=== PATIENT | male | born 1975 | race Caucasian/White ===

== ENCOUNTER 2022-05-31 22:37 | Inpatient (IN) ==
[2022-05-31] MEDS ORDERED: methylPREDNISolone SOD SUCC 125 MG/2 ML VIAL IV ONE (23:05)
[2022-05-31] MEDS ORDERED: IPRATROPIUM/ALBUTEROL 3 ML AMPUL.NEB NEB ONE (23:05)
[2022-05-31] MEDS ORDERED: LACTATED RINGERS 1,000 ML IV ONE (23:05)
[2022-05-31] MEDS ORDERED: BUDESONIDE 0.5 MG/2 ML AMPUL.NEB NEB ONE (23:09)
[2022-06-01] LABS: Basophils # (Auto) 0.06 K/mcL (0.00-0.30); Basophils % (Auto) 0.3 % (0.0-2.0); Eosinophils % (Auto) 1.7 % (0.0-7.0); Hematocrit 51.3 % (40.1-51.0); Hemoglobin 16.8 g/dL (13.7-17.5); Lymphocytes # (Auto) 2.35 K/mcL (1.50-4.80); Lymphocytes % (Auto) 13.7 % (15.5-49.0); Mean Cell Volume 92.3 fL (80.0-100.0); Mean Corpuscular HGB Conc 32.7 g/dL (31.0-36.0); Mean Platelet Volume 10.6 fL (8.8-12.5); Monocytes # (Auto) 1.25 K/mcL (0.10-0.90); Monocytes % (Auto) 7.3 % (1.0-12.0); Neutrophils % (Auto) 76.7 % (38.0-78.0); Platelet Count 315 K/mcL (140-440); RBC 5.56 M/mcL (4.63-6.08); Red Cell Distribution Width 12.5 % (11.5-14.5); WBC 17.2 K/mcL (4.5-11.0)
[2022-06-01] MEDS ORDERED: PIPERACILLIN SODIUM/TAZOBACTAM 3.375 GM in DEXTROSE 5% IN WATER 50 ML IV ONE (00:07)
[2022-06-01 00:14] LABS: ALT/SGPT 34 U/L (<40); AST/SGOT 19 U/L (<40); Albumin 3.6 gm/dL (3.2-5.2); Alkaline Phosphatase 183 U/L (39-117); Bilirubin,Total 0.6 mg/dL (0.1-1.0); Blood Urea Nitrogen 10 mg/dL (6-20); Carbon Dioxide 27 mmol/L (22-30); Chloride 95 mmol/L (96-108); Globulin 3.7 gm/dL (2.2-3.7); Glomerular Filtration Rate 143; Glucose 97 mg/dL (70-105)
--- NOTE | 2022-06-01 00:18 | Emergency Department Note ---
HPI General Chief complaint: Shortness of Breath/Dyspnea Stated complaint: SOB Time Seen by Provider: 05/31/22 22:37 Source: family Mode of arrival: wheelchair Limitations: altered mental status and physical limitation History of Present Illness HPI Narrative: Narrative: This is a 46-year-old male with a history of cerebral palsy, asthma presents to the emergency department with shortness of breath and increased work of breathing. Patient is trach dependent, he is on 2 L of oxygen via trach collar at baseline. Patient is nonverbal and history is obtained from parents. Patient was in the emergency department yesterday and diagnosed with a pneumonia the family states that he was given IV fluids and antibiotics and did well throughout the rest of the day however tonight he had an episode when they were laying him back he became very short of breath with signs of increased work of breathing, he had skin discoloration and almost turned blue. Parents state that this episode has gone and his symptoms have been proved but he is still breathing faster than he normally does. Patient has had low-grade fevers around 100. Related Data Home Medications Medication Instructions Recorded Confirmed doxycycline hyclate 100 mg tablet 100 mg PO QDAY 11/30/20 06/01/22 polyethylene glycol 3350 17 See Rx Instructions PO QDAY 11/30/20 06/01/22 gram/dose oral powder (Miralax) metronidazole 0.75 % topical gel 1 applic topical QDAY 12/05/21 06/01/22 sennosides 8.6 mg capsule (senna) 8.6 mg PO .COMPLEX 12/05/21 06/01/22 Previous Rx's Medication Instructions Recorded Curaplex Nebulizer #1 ea 02/15/16 Compact Compressor Combo Pack with #2 ea 08/28/16 Air Filters Dual Port Feeding Adaptor #1 ea 11/12/17 ketoconazole 2 % topical cream 1 applic topical BID 3 weeks #30 06/02/19 grams wheelchair #1 ea 06/02/19 Suction Catheter mini tray #400 ea 08/18/19 sodium chloride 0.9 % for 3 ml inhalation Q12H #300 mL 12/05/20 nebulization meclizine 12.5 mg tablet 12.5 mg PO TID PRN dizziness #30 09/13/21 tabs ipratropium 0.5 mg-albuterol 3 mg 3 ml inhalation QID #1,080 mL 11/06/21 (2.5 mg base)/3 mL nebulization soln albuterol sulfate 2.5 mg/3 mL 2.5 mg (3 mL) inhalation Q2H PRN 12/05/21 (0.083 %) solution for nebulization bronchospasm 30 days #1,080 mL Balloon PEG tube #1 ea 12/14/21 baclofen 20 mg tablet 20 mg PO .COMPLEX PRN muscle spasm 01/23/22 #360 tabs budesonide 0.5 mg/2 mL suspension 0.5 mg (2 mL) inhalation BID #360 02/22/22 for nebulization (Pulmicort) mL carbamazepine 100 mg chewable 100 mg PO QID #120 tabs 02/22/22 tablet hydrocodone 5 mg-acetaminophen 325 1 tab PO TID PRN pain #90 tabs 03/22/22 mg tablet omeprazole 20 mg capsule,delayed 20 mg PO QDAY #90 caps 04/04/22 release amlodipine 5 mg tablet (Norvasc) 5 mg PO QDAY #90 tabs 04/12/22 sertraline 50 mg tablet (Zoloft) 50 mg PO QDAY #90 tabs 04/12/22 lorazepam 1 mg tablet (Ativan) 1 mg PO TID PRN anxiety #90 tabs 04/16/22 Allergies Allergy/AdvReac Type Severity Reaction Status Date / Time theophylline Allergy Unknown Unknown Verified 06/01/22 14:41 metoclopramide [From Reglan] AdvReac Intermediate Agitated Verified 06/01/22 14:41 Review of Systems ROS ROS Narrative: Narrative: Unable to obtain secondary to underlying medical condition. [facility] Narrative Patient History Narrative: Narrative: Medical/Surgical/Family History All Active Problems (Updated 06/03/22 @ 08:53 by Georgi Thapa MD) Left lower lobe pneumonia (Acute) Pneumonia (Acute) Tachycardia (Acute) Stage 2 skin ulcer of sacral region (Acute) Anxiety (Acute) High risk medication use (Acute) Spasticity (Acute) BPPV (benign paroxysmal positional vertigo) (Acute) Annual physical exam (Acute) PEG tube malfunction (Acute) Medicare annual wellness visit, subsequent (Acute) Aspiration pneumonia (Acute) Nausea & vomiting (Acute) Encounter for care related to feeding tube (Acute) History of transurethral resection of prostate (Chronic) Status post emergency tracheotomy for assistance in breathing (Chronic) Hydrocephalus with operating shunt (Chronic) H/O spinal fusion (Chronic) Pulmonary insufficiency (Chronic) Neurogenic bladder (Chronic) Esophageal disorder (Chronic) Cerebral palsy (Chronic) Asthma (Chronic) AG (generalized anxiety disorder) (Chronic) Medical History Acute bronchiolitis 09/25/2014- Dr. Becerra Annual physical exam Anxiety Asthma 09/25/2014- Dr. Becerra BPPV (benign paroxysmal positional vertigo) Cerebral palsy Esophageal disorder Ulcerative Esophagitis/peg tube AG (generalized anxiety disorder) High risk medication use Medicare annual wellness visit, subsequent Neurogenic bladder PEG tube malfunction Pulmonary insufficiency NEC-With trach Seizures Spasticity Stage 2 skin ulcer of sacral region Surgical History Encounter for feeding tube placement 09/2014 H/O spinal fusion 05/1995-Modified 1996, Candie Cardona History of transurethral resection of prostate Hydrocephalus with operating shunt 3 months old, Status post emergency tracheotomy for assistance in breathing 04/1996 Family History Unknown Allergic rhinitis Asthma Cardiac disease Disorder of thyroid Father Hypertension Social History Smoking Status: Never smoker Alcohol Intake Frequency: does not drink Exam Narrative Narrative: Narrative: General: Nonverbal, in wheelchair, thin HEENT: NCAT Neck: Trach collar in place Cardiovascular: RRR. No murmur. Respiratory: Diminished breath sounds bilaterally predominantly in the bases Gastrointestinal: Soft. PEG tube in place Musculoskeletal: Diffuse muscular atrophy Skin: Warm. Dry. No rash Neurologic: Spasticity to the upper and lower extremities General Limitations: altered mental status and physical limitation Course Vital Signs Vital signs: Vital Signs Temperature 97.8 F 05/31/22 22:37 Pulse Rate 85 05/31/22 22:37 Respiratory Rate 30 H 05/31/22 22:37 Blood Pressure 148/115 05/31/22 22:37 Pulse Oximetry (%) 96 05/31/22 22:37 Oxygen Delivery Method 05/31/22 22:37 Temperature 99.9 F H 06/03/22 04:10 Pulse Rate 123 H 06/03/22 07:23 Respiratory Rate 30 H 06/03/22 07:23 Blood Pressure 118/91 06/03/22 06:00 Pulse Oximetry (%) 97 06/03/22 07:23 Oxygen Delivery Method 06/03/22 07:23 Oxygen Flow Rate (L/min) 14 06/02/22 09:11 MDM MDM Narrative Medical decision making narrative: Narrative: Patient presents to the emergency department with increased work of breathing patient does have a history of cerebral palsy he is nonverbal and wheelchair- bound. Patient also has a history of reactive airway disease. Initially patient did appear to be struggling to catch his breath he was maintaining appropriate oxygen saturation on his baseline 2 L however. Patient has been on antibiotics for 1 day outpatient for pneumonia. Patient's initial blood work shows a worsening leukocytosis, lactate of 2.8. Patient was given DuoNeb, 125 mg of Solu-Medrol for his underlying lung disease along with vancomycin and Zosyn. Shortly after patient did develop a profound tachycardia his rate was up to 160. Review of telemetry and EKGs it does appear to be a sinus rhythm. Because of this was unclear patient is nonverbal his work of breathing did not seem to be necessarily worsened. Other considerations include from the Solu- Medrol or DuoNeb however patient is on inhalers scheduled at home. Patient did not have a fever at the time of his heart rate spiked. Family was very con cerned that it was related to anxiety. Family is very much in tune with the patient and took very good care of him. I did have reservations for checking the patient's tachycardia up to anxiety. The patient is prescribed Ativan and I did give him a 1 mg dose. Patient also was overdue for his baclofen so this was given as well. Patient was also given IV fluids and Toradol. Multiple EKGs per my interpretation is still does appear that the patient is in a sinus tachycardia his rate improved to around the 120s. Given the tachycardia I did consider pulmonary embolism. There has been no obvi ous new lower extremity edema however the patient is wheelchair-bound there is no history of venous thromboembolism. Patient's D-dimer was mildly elevated. Family states that they are there is no possible way for the patient to lie still and flat for a CT scan. I will start the patient on heparin and order bilateral lower extremity duplex. Should these be negative would greatly decrease the likelihood of pulmonary embolism. Patient may also be able to go for CT scan under sedation inpatient? Lab Data Result diagrams: 06/03/22 05:01 06/03/22 05:01 Labs: Lab Results 05/31/22 05/31/22 05/31/22 Range/Units 23:20 23:20 23:20 WBC 17.2 H (4.5-11.0) K/mcL RBC 5.56 (4.63-6.08) M/mcL Hgb 16.8 (13.7-17.5) g/dL Hct 51.3 H (40.1-51.0) % MCV 92.3 (80.0-100.0) fL MCH 30.2 (26.0-34.0) pg MCHC 32.7 (31.0-36.0) g/dL RDW 12.5 (11.5-14.5) % Plt Count 315 (140-440) K/mcL MPV 10.6 (8.8-12.5) fL Immature Gran % (Auto) 0.3 (0.0-0.5) % Neut % (Auto) 76.7 (38.0-78.0) % Lymph % (Auto) 13.7 L (15.5-49.0) % [place] % (Auto) 7.3 (1.0-12.0) % Eos % (Auto) 1.7 (0.0-7.0) % Baso % (Auto) 0.3 (0.0-2.0) % Lymph # (Auto) 2.35 (1.50-4.80) K/mcL [place] # (Auto) 1.25 H (0.10-0.90) K/mcL Eos # (Auto) 0.30 (0.00-0.70) K/mcL Baso # (Auto) 0.06 (0.00-0.30) K/mcL Immature Gran # 0.06 H (0.00-0.05) K/mcl Absolute Neutrophils 13.13 H (1.80-8.00) K/mcL APTT (20.0-37.0) sec D-Dimer (0.27-0.50) ug/mL POC VBG pH (7.32-7.42) POC VBG pCO2 at Temp (41-51) POC VBG pO2 (25-40) POC VBG HCO3 (24-28) POC VBG Total CO2 (25-29) POC Venous O2 Sat (40-70) POC VBG Base Excess (-2-2) VBG Lactic Acid (0.5-2) Sodium 133 (133-145) mmol/L Potassium 4.0 (3.3-5.1) mmol/L Chloride 95 L (96-108) mmol/L Carbon Dioxide 27 (22-30) mmol/L Anion Gap 11.0 (8.0-16.0) BUN 10 (6-20) mg/dL Creatinine 0.4 L (0.7-1.2) mg/dL GFR Calculation 143 Glucose 97 (70-105) mg/dL Calcium 9.0 (8.6-10.4) mg/dL Total Bilirubin 0.6 (0.1-1.0) mg/dL AST 19 (<40) U/L ALT 34 (<40) U/L Alkaline Phosphatase 183 H (39-117) U/L Total Protein 7.3 (5.9-8.4) gm/dL Albumin 3.6 (3.2-5.2) gm/dL Globulin 3.7 (2.2-3.7) gm/dL Albumin/Globulin Ratio 1.0 (1.0-2.3) Procalcitonin 0.08 (<0.10) ng/mL TSH (0.27-5.01) uIU/mL 05/31/22 05/31/22 05/31/22 Range/Units 23:20 23:20 23:26 WBC (4.5-11.0) K/mcL RBC (4.63-6.08) M/mcL Hgb (13.7-17.5) g/dL Hct (40.1-51.0) % MCV (80.0-100.0) fL MCH (26.0-34.0) pg MCHC (31.0-36.0) g/dL RDW (11.5-14.5) % Plt Count (140-440) K/mcL MPV (8.8-12.5) fL Immature Gran % (Auto) (0.0-0.5) % Neut % (Auto) (38.0-78.0) % Lymph % (Auto) (15.5-49.0) % [place] % (Auto) (1.0-12.0) % Eos % (Auto) (0.0-7.0) % Baso % (Auto) (0.0-2.0) % Lymph # (Auto) (1.50-4.80) K/mcL [place] # (Auto) (0.10-0.90) K/mcL Eos # (Auto) (0.00-0.70) K/mcL Baso # (Auto) (0.00-0.30) K/mcL Immature Gran # (0.00-0.05) K/mcl Absolute Neutrophils (1.80-8.00) K/mcL APTT (20.0-37.0) sec D-Dimer 1.46 H (0.27-0.50) ug/mL POC VBG pH 7.38 (7.32-7.42) POC VBG pCO2 at Temp 46.8 (41-51) POC VBG pO2 29 (25-40) POC VBG HCO3 28.0 (24-28) POC VBG Total CO2 29.0 (25-29) POC Venous O2 Sat 54.0 (40-70) POC VBG Base Excess 3.0 H (-2-2) VBG Lactic Acid 2.8 H (0.5-2) Sodium (133-145) mmol/L Potassium (3.3-5.1) mmol/L Chloride (96-108) mmol/L Carbon Dioxide (22-30) mmol/L Anion Gap (8.0-16.0) BUN (6-20) mg/dL Creatinine (0.7-1.2) mg/dL GFR Calculation Glucose (70-105) mg/dL Calcium (8.6-10.4) mg/dL Total Bilirubin (0.1-1.0) mg/dL AST (<40) U/L ALT (<40) U/L Alkaline Phosphatase (39-117) U/L Total Protein (5.9-8.4) gm/dL Albumin (3.2-5.2) gm/dL Globulin (2.2-3.7) gm/dL Albumin/Globulin Ratio (1.0-2.3) Procalcitonin (<0.10) ng/mL TSH 2.11 (0.27-5.01) uIU/mL 06/01/22 06/01/22 Range/Units 02:47 08:40 WBC (4.5-11.0) K/mcL RBC (4.63-6.08) M/mcL Hgb (13.7-17.5) g/dL Hct (40.1-51.0) % MCV (80.0-100.0) fL MCH (26.0-34.0) pg MCHC (31.0-36.0) g/dL RDW (11.5-14.5) % Plt Count (140-440) K/mcL MPV (8.8-12.5) fL Immature Gran % (Auto) (0.0-0.5) % Neut % (Auto) (38.0-78.0) % Lymph % (Auto) (15.5-49.0) % [place] % (Auto) (1.0-12.0) % Eos % (Auto) (0.0-7.0) % Baso % (Auto) (0.0-2.0) % Lymph # (Auto) (1.50-4.80) K/mcL [place] # (Auto) (0.10-0.90) K/mcL Eos # (Auto) (0.00-0.70) K/mcL Baso # (Auto) (0.00-0.30) K/mcL Immature Gran # (0.00-0.05) K/mcl Absolute Neutrophils (1.80-8.00) K/mcL APTT 33.2 (20.0-37.0) sec D-Dimer (0.27-0.50) ug/mL POC VBG pH (7.32-7.42) POC VBG pCO2 at Temp (41-51) POC VBG pO2 (25-40) POC VBG HCO3 (24-28) POC VBG Total CO2 (25-29) POC Venous O2 Sat (40-70) POC VBG Base Excess (-2-2) VBG Lactic Acid 1.4 (0.5-2) Sodium (133-145) mmol/L Potassium (3.3-5.1) mmol/L Chloride (96-108) mmol/L Carbon Dioxide (22-30) mmol/L Anion Gap (8.0-16.0) BUN (6-20) mg/dL Creatinine (0.7-1.2) mg/dL GFR Calculation Glucose (70-105) mg/dL Calcium (8.6-10.4) mg/dL Total Bilirubin (0.1-1.0) mg/dL AST (<40) U/L ALT (<40) U/L Alkaline Phosphatase (39-117) U/L Total Protein (5.9-8.4) gm/dL Albumin (3.2-5.2) gm/dL Globulin (2.2-3.7) gm/dL Albumin/Globulin Ratio (1.0-2.3) Procalcitonin (<0.10) ng/mL TSH (0.27-5.01) uIU/mL ED POC Tests ED POC Tests: LITA - SARS Antigen Negative EKG Data EKG #1: EKG attestation: Yes I reviewed and interpreted this EKG., Yes There are no EKG findings of acute coronary syndrome and Yes This EKG will be read by leaf sorter EKG results narrative: EKG per my interpretation shows a sinus tachycardia with a rate of 162 there is left posterior fascicular block there is right axis deviation no evidence of acute ischemia EKG #2: EKG attestation: Yes I reviewed and interpreted this EKG., Yes There are no EKG findings of acute coronary syndrome and Yes This EKG will be read by leaf sorter EKG results narrative: EKG per my interpretation shows sinus tachycardia with a rate of 144 right axis deviation no evidence of STEMI EKG #3: EKG attestation: Yes I reviewed and interpreted this EKG., Yes There are no EKG findings of acute coronary syndrome and Yes This EKG will be read by leaf sorter EKG results narrative: EKG per my interpretation shows sinus tachycardia with a rate of 139 right axis deviation no evidence of STEMI Discharge Plan Patient/Caregiver Discharge Instructions Pt seen by TRIM MECHANIC/PA only: No Clinical Impression: Pneumonia, Tachycardia Activity: increase activity as tolerated Patient Disposition: Xfer As Outpt/Obs ([facility]) Condition: Undetermined Discharge Date/Time: 06/01/22 07:30
[2022-06-01] MEDS ORDERED: BACLOFEN 10 MG TABLET PO ONE ×2 (00:34→05:49)
[2022-06-01] MEDS ORDERED: VANCOMYCIN 750 MG in 0.9 % SODIUM CHLORIDE 250 ML IV ONE (00:35)
[2022-06-01] MEDS ORDERED: LORazepam 2 MG/ML VIAL IV ONE (01:15)
[2022-06-01 01:23] LABS: proBNP 28.7 pg/mL (<125.0)
[2022-06-01] MEDS: VANCOMYCIN PER PHARMACY IV ONE ×2 (01:32→09:20)
[2022-06-01] MEDS ORDERED: KETOROLAC 30 MG/ML VIAL IV ONE (02:34)
[2022-06-01] MEDS ORDERED: LACTATED RINGERS 1,000 ML IV ONE (02:36)
[2022-06-01] MEDS ORDERED: ADENOSINE 3 MG/ML VIAL IV ONE (03:19)
[2022-06-01] MEDS ORDERED: HEPARIN SOD,PORK IN 0.45% NACL 25,000 UNIT in PREMIX 1 BAG IV SCH (04:00)
[2022-06-01] MEDS ORDERED: METOPROLOL TARTRATE 5 MG/5 ML VIAL IV ONE (04:05)
[2022-06-01] MEDS ORDERED: LACTULOSE 20 GM/30 ML ORAL.SOL PO PRN (04:39)
[2022-06-01] MEDS ORDERED: ONDANSETRON 4 MG/2 ML VIAL IV PRN ×2 (04:39→11:53)
[2022-06-01] MEDS ORDERED: SENNOSIDES 1 TABLET PO PRN (04:39)
[2022-06-01] MEDS ORDERED: PIPERACILLIN SODIUM/TAZOBACTAM 3.375 GM in DEXTROSE 5% IN WATER 50 ML IV SCH (04:45)
[2022-06-01] MEDS ORDERED: LACTATED RINGERS 1,000 ML IV SCH (04:45)
[2022-06-01] MEDS ORDERED: OMEPRAZOLE 20 MG CAPSULE PO ONE (05:49)
[2022-06-01] MEDS ORDERED: amLODIPine 5 MG TABLET PO ONE (05:49)
[2022-06-01] MEDS ORDERED: carBAMazepine 100 MG TAB.CHEW PO ONE (05:50)
[2022-06-01] MEDS ORDERED: LORazepam 1 MG TABLET PO ONE (05:51)
--- NOTE | 2022-06-01 08:04 | Internal Med History&Physical ---
HPI History of Present Illness Patient information: Note initiated : 06/01/22 at 7:51 am Service Date, if different from initiated Date: [] Patient: Juan F Chang a 46 y/o M admitted on 06/01/22 for Shortness of breath-Pneumonia. Chief Complaint: [] History of present illness: Mr. Chang is a 46 year old M Patient with cerebral palsy as noted to have rapid breathing and pale skin per father who was concerned about hypoxia and thus brought him in. Patient was seen in the ED several days prior and diagnosed with pneumonia and sent home with antibiotics. His baseline oxygen requirement is 2 L via trach collar. In the ER he was noted to be tachycardic and tachypneic. He was afebrile although was febrile on the previous ED visit. He also had a leukocytosis of 17,000, and an elevated lactate at 2.8. He then had a sudden increase in his heart rate up to 150s. Patient was treated with adenosine and Lopressor and heart rate came back down to the 120s. Looks like on old vital signs he is commonly tachycardic but usually in the low 100s to 110s. In discussion with family they say he is breathing is more labored. And they typically suction quite a bit of phlegm orally but have not been able to get much yesterday. He also said his heart rate does run high. Last bout of pneumonia was about 4 years ago they say and did have it frequently prior to that. He is on continuous tube feedings and they do pause for elevated residuals. Review of system: Unable to obtain as patient is nonverbal PFS PFS All Active Problems (Updated 05/30/22 @ 09:13 by Erick Phan DO) Left lower lobe pneumonia (Acute) Stage 2 skin ulcer of sacral region (Acute) Anxiety (Acute) High risk medication use (Acute) Spasticity (Acute) BPPV (benign paroxysmal positional vertigo) (Acute) Annual physical exam (Acute) PEG tube malfunction (Acute) Medicare annual wellness visit, subsequent (Acute) Aspiration pneumonia (Acute) Nausea & vomiting (Acute) Encounter for care related to feeding tube (Acute) History of transurethral resection of prostate (Chronic) Status post emergency tracheotomy for assistance in breathing (Chronic) Hydrocephalus with operating shunt (Chronic) H/O spinal fusion (Chronic) Pulmonary insufficiency (Chronic) Neurogenic bladder (Chronic) Esophageal disorder (Chronic) Cerebral palsy (Chronic) Asthma (Chronic) AG (generalized anxiety disorder) (Chronic) Medical History Acute bronchiolitis 09/25/2014- Dr. Becerra Annual physical exam Anxiety Asthma 09/25/2014- Dr. Becerra BPPV (benign paroxysmal positional vertigo) Cerebral palsy Esophageal disorder Ulcerative Esophagitis/peg tube AG (generalized anxiety disorder) High risk medication use Medicare annual wellness visit, subsequent Neurogenic bladder PEG tube malfunction Pulmonary insufficiency NEC-With trach Seizures Spasticity Stage 2 skin ulcer of sacral region Surgical History Encounter for feeding tube placement 09/2014 H/O spinal fusion 05/1995-Modified 1996, Candie Cardona History of transurethral resection of prostate Hydrocephalus with operating shunt 3 months old, Status post emergency tracheotomy for assistance in breathing 04/1996 Family History Unknown Allergic rhinitis Asthma Cardiac disease Disorder of thyroid Father Hypertension Social History (Updated 08/09/19 @ 08:56 by Damian Wang MD) marital status: single education level: high school occupational status: disabled smoking status: Never smoker alcohol intake frequency: does not drink MEDS/ALLERGIES Home Medications and Allergies Home Medications Medication Instructions Recorded Confirmed Type Curaplex Nebulizer #1 ea 02/15/16 06/01/22 Rx Compact Compressor Combo Pack with #2 ea 08/28/16 06/01/22 Rx Air Filters Dual Port Feeding Adaptor #1 ea 11/12/17 06/01/22 Rx ketoconazole 2 % topical cream 1 applic topical BID 3 weeks #30 06/02/19 06/01/22 Rx grams wheelchair #1 ea 06/02/19 06/01/22 Rx Suction Catheter mini tray #400 ea 08/18/19 06/01/22 Rx doxycycline hyclate 100 mg tablet 100 mg PO QDAY 11/30/20 06/01/22 History polyethylene glycol 3350 17 See Rx Instructions PO QDAY 11/30/20 06/01/22 History gram/dose oral powder (Miralax) sodium chloride 0.9 % for 3 ml inhalation Q12H #300 mL 12/05/20 06/01/22 Rx nebulization meclizine 12.5 mg tablet 12.5 mg PO TID PRN dizziness #30 09/13/21 06/01/22 Rx tabs ipratropium 0.5 mg-albuterol 3 mg 3 ml inhalation QID #1,080 mL 11/06/21 06/01/22 Rx (2.5 mg base)/3 mL nebulization soln albuterol sulfate 2.5 mg/3 mL 2.5 mg (3 mL) inhalation Q2H PRN 12/05/21 06/01/22 Rx (0.083 %) solution for nebulization bronchospasm 30 days #1,080 mL metronidazole 0.75 % topical gel 1 applic topical QDAY 12/05/21 06/01/22 History sennosides 8.6 mg capsule (senna) 8.6 mg PO .COMPLEX 12/05/21 06/01/22 History Balloon PEG tube #1 ea 12/14/21 06/01/22 Rx baclofen 20 mg tablet 20 mg PO .COMPLEX PRN muscle spasm 01/23/22 06/01/22 Rx #360 tabs budesonide 0.5 mg/2 mL suspension 0.5 mg (2 mL) inhalation BID #360 02/22/22 06/01/22 Rx for nebulization (Pulmicort) mL carbamazepine 100 mg chewable 100 mg PO QID #120 tabs 02/22/22 06/01/22 Rx tablet hydrocodone 5 mg-acetaminophen 325 1 tab PO TID PRN pain #90 tabs 03/22/22 06/01/22 Rx mg tablet omeprazole 20 mg capsule,delayed 20 mg PO QDAY #90 caps 04/04/22 06/01/22 Rx release amlodipine 5 mg tablet (Norvasc) 5 mg PO QDAY #90 tabs 04/12/22 06/01/22 Rx sertraline 50 mg tablet (Zoloft) 50 mg PO QDAY #90 tabs 04/12/22 06/01/22 Rx lorazepam 1 mg tablet (Ativan) 1 mg PO TID PRN anxiety #90 tabs 04/16/22 06/01/22 Rx amoxicillin 600 mg-potassium 7.3 ml PO BID 10 days #146 mL 05/30/22 06/01/22 Rx clavulanate 42.9 mg/5 mL oral suspension (Augmentin ES-) ciprofloxacin 500 mg/5 mL oral 750 mg (7.5 mL) PO Q12H 10 days 05/30/22 06/01/22 Rx suspension #150 mL Allergies Allergy/AdvReac Type Severity Reaction Status Date / Time theophylline Allergy Unknown Unknown Verified 05/31/22 22:37 metoclopramide [From Reglan] AdvReac Severe Agitated Verified 05/31/22 22:37 From SLO-BID 300 Allergy Intermediate Unknown Uncoded 12/05/21 10:15 EXAM Constitutional Vitals: Temp Pulse Resp BP Pulse Ox O2 Del Method O2 Flow Rate 97.8 F 135 H 42 H 165/108 96 2 06/01/22 07:34 06/01/22 06:47 06/01/22 07:34 06/01/22 07:34 06/01/22 07:34 06/01/22 07:02 06/01/22 07:02 Exam: General: Alert, Awake, No acute Distress Eyes/N/T: EOMI, PERRL, trach in place Head/Neck: neck supple, normocephalic atraumatic CV: Tachycardic but regular, No murmurs, normal s1/s2 Pulm: Mild rhonchi b/l, mild wheezing b/l Abd: soft, nontender, +BS x4 Ext: no clubbing/cyanosis/edema Neuro: Alert, spontaneously moves all extremities, Skin: warm/dry DATA Data Completed and Pending Labs: Labs from last 24 hours 06/01/22 06/01/22 06/01/22 23:20 23:20 02:47 WBC RBC Hgb Hct MCV MCH MCHC RDW Plt Count MPV Immature Gran % (Auto) Neut % (Auto) Lymph % (Auto) [place] % (Auto) Eos % (Auto) Baso % (Auto) Lymph # (Auto) [place] # (Auto) Eos # (Auto) Baso # (Auto) Immature Gran # Absolute Neutrophils D-Dimer POC VBG pH POC VBG pCO2 at Temp POC VBG pO2 POC VBG HCO3 POC VBG Total CO2 POC Venous O2 Sat POC VBG Base Excess VBG Lactic Acid 1.4 Sodium Potassium Chloride Carbon Dioxide Anion Gap BUN Creatinine GFR Calculation Glucose Calcium Magnesium 2.2 Total Bilirubin AST ALT Alkaline Phosphatase Troponin T < 0.01 NT-Pro-B Natriuret Pep 28.7 Total Protein Albumin Globulin Albumin/Globulin Ratio Procalcitonin TSH 05/31/22 05/31/22 05/31/22 23:26 23:20 23:20 WBC RBC Hgb Hct MCV MCH MCHC RDW Plt Count MPV Immature Gran % (Auto) Neut % (Auto) Lymph % (Auto) [place] % (Auto) Eos % (Auto) Baso % (Auto) Lymph # (Auto) [place] # (Auto) Eos # (Auto) Baso # (Auto) Immature Gran # Absolute Neutrophils D-Dimer 1.46 H POC VBG pH 7.38 POC VBG pCO2 at Temp 46.8 POC VBG pO2 29 POC VBG HCO3 28.0 POC VBG Total CO2 29.0 POC Venous O2 Sat 54.0 POC VBG Base Excess 3.0 H VBG Lactic Acid 2.8 H Sodium Potassium Chloride Carbon Dioxide Anion Gap BUN Creatinine GFR Calculation Glucose Calcium Magnesium Total Bilirubin AST ALT Alkaline Phosphatase Troponin T NT-Pro-B Natriuret Pep Total Protein Albumin Globulin Albumin/Globulin Ratio Procalcitonin TSH 2.11 05/31/22 05/31/22 05/31/22 23:20 23:20 23:20 WBC 17.2 H RBC 5.56 Hgb 16.8 Hct 51.3 H MCV 92.3 MCH 30.2 MCHC 32.7 RDW 12.5 Plt Count 315 MPV 10.6 Immature Gran % (Auto) 0.3 Neut % (Auto) 76.7 Lymph % (Auto) 13.7 L [place] % (Auto) 7.3 Eos % (Auto) 1.7 Baso % (Auto) 0.3 Lymph # (Auto) 2.35 [place] # (Auto) 1.25 H Eos # (Auto) 0.30 Baso # (Auto) 0.06 Immature Gran # 0.06 H Absolute Neutrophils 13.13 H D-Dimer POC VBG pH POC VBG pCO2 at Temp POC VBG pO2 POC VBG HCO3 POC VBG Total CO2 POC Venous O2 Sat POC VBG Base Excess VBG Lactic Acid Sodium 133 Potassium 4.0 Chloride 95 L Carbon Dioxide 27 Anion Gap 11.0 BUN 10 Creatinine 0.4 L GFR Calculation 143 Glucose 97 Calcium 9.0 Magnesium Total Bilirubin 0.6 AST 19 ALT 34 Alkaline Phosphatase 183 H Troponin T NT-Pro-B Natriuret Pep Total Protein 7.3 Albumin 3.6 Globulin 3.7 Albumin/Globulin Ratio 1.0 Procalcitonin 0.08 TSH A/P Narrative A/P Narrative: A: *PNA(SC with GNB/GPB/GPC), most likely Aspiration: -flu/rsv neg *Sepsis: 2/2 above *Cerebral palsy w/spasticity: *Seizure d/o: *Anxiety: *HTN: *GERD: *Asthma: *Tachycardia, sinus, chronic: P: -cont zosyn for now, pending SC -covid pending -IVF back to TF's -O2 Supp -Follow-up EKG -Pulmonary toilet if able, suctioning -duonebs, RT -ppx: Lovenox / home PPI Time Spent With Patient Time: Total time spent is greater than 50% in coordination of care (as documented) at patient's floor/unit and/or counseling patient: Total time spent with greater than 50% in coordination of care (as documented) at patient's floor/unit and/or counseling patient:: Greater than 70 minutes
--- NOTE | 2022-06-01 08:48 | XRay Report ---
HISTORY: Short of breath, history of left lower lobe pneumonia FINDINGS: There is dense consolidation in the left lower lobe with subtle generalized alveolar opacities in the right lung and left upper lobe. A thick band of consolidation has developed in the lingula, new since 05/30/22. The consolidation in the lung base is stable. The heart size is borderline enlarged but magnified. There is tracheostomy tube. Postsurgical changes following fusion in the thoracic and lumbar spine are again noted. IMPRESSION: Worsening pneumonia/atelectasis in the left lower thorax Interpreted and Authenticated by: Duran Rodriguez 06/01/22
[2022-06-01] MEDS: BUDESONIDE 0.5 MG/2 ML AMPUL.NEB NEB SCH ×2 (09:18→18:41)
[2022-06-01] MEDS: IPRATROPIUM/ALBUTEROL 3 ML AMPUL.NEB NEB SCH ×5 (09:18→23:03)
[2022-06-01] MEDS: ALBUTEROL SULFATE 2.5 MG/3 ML NEBULIZER NEB SCH ×3 (09:20→15:19)
[2022-06-01] MEDS: 0.9 % SODIUM CHLORIDE 10 ML SYRINGE IV SCH ×3 (09:20→21:14)
--- NOTE | 2022-06-01 09:30 | Ultrasound Report ---
History: Shortness breath, quadriplegic, suspected deep venous thrombosis FINDINGS: Both legs were imaged. There is normal augmentation and compressibility in the deep veins and saphenous veins in both legs from the groin through the calf. Doppler shows normal waveform patterns. IMPRESSION: Normal exam without evidence of deep venous thrombosis in either leg Interpreted and Authenticated by: Duran Rodriguez 06/01/22
[2022-06-01] MEDS: DOCUSATE SODIUM 100 MG CAPSULE PO SCH ×2 (11:07→20:37)
[2022-06-01] MEDS: PIPERACILLIN SODIUM/TAZOBACTAM 3.375 GM in DEXTROSE 5% IN WATER 50 ML IV SCH ×4 (11:18→23:28)
[2022-06-01] MEDS ORDERED: POTASSIUM CHLORIDE 20 MEQ TABLET PO PRN ×2 (11:53)
[2022-06-01] MEDS ORDERED: POLYETHYLENE GLYCOL 3350 17 GM PACKET PO PRN (11:53)
[2022-06-01] MEDS ORDERED: POTASSIUM CHLORIDE 40 MEQ in DEXTROSE 5% IN WATER 500 ML IV PRN (11:53)
[2022-06-01] MEDS ORDERED: MAGNESIUM SULFATE 2 GM/50 ML BAG IV PRN (11:53)
[2022-06-01] MEDS ORDERED: ACETAMINOPHEN 325 MG TABLET PO PRN (11:55)
[2022-06-01] MEDS ORDERED: MECLIZINE 25 MG TABLET PO PRN (12:07)
[2022-06-01] MEDS ORDERED: carBAMazepine 100 MG TAB.CHEW PO SCH (13:00)
[2022-06-01] MEDS: LORazepam 1 MG TABLET PO PRN ×2 (13:17→20:39)
[2022-06-01] MEDS: OMEPRAZOLE 20 MG CAPSULE PO SCH (13:28)
[2022-06-01] MEDS: SERTRALINE 50 MG TABLET PO SCH (13:28)
[2022-06-01] MEDS: BACLOFEN 10 MG TABLET PO SCH ×2 (13:29→20:46)
[2022-06-01] MEDS ORDERED: hydrALAZINE 20 MG/ML VIAL IV PRN (14:00)
[2022-06-01] MEDS ORDERED: LABETALOL 5 MG/ML ML IV PRN (14:00)
[2022-06-01] MEDS ORDERED: 0.9 % SODIUM CHLORIDE 10 ML SYRINGE IV SCH (14:00)
[2022-06-01] MEDS: METOPROLOL TARTRATE 5 MG/5 ML VIAL IV PRN (14:32)
[2022-06-01] MEDS: carBAMazepine 100 MG TAB.CHEW PO SCH ×3 (17:07→20:37)
[2022-06-01] MEDS: ACETAMINOPHEN 650 MG/65 ML BAG IV PRN (18:01)
[2022-06-01] MEDS: HYDROcodone/APAP 5/325MG TABLET PO PRN (20:35)
[2022-06-01] MEDS ORDERED: DOCUSATE SODIUM 100 MG CAPSULE PO SCH (21:00)
[2022-06-01] MEDS: SODIUM CHLORIDE 0.9% INH SCH (22:29)
[2022-06-02] MEDS: ACETAMINOPHEN 650 MG/65 ML BAG IV PRN ×3 (01:35→20:39)
[2022-06-02] MEDS: METOPROLOL TARTRATE 5 MG/5 ML VIAL IV PRN ×7 (01:47→21:27)
[2022-06-02] MEDS: ALBUTEROL SULFATE 2.5 MG/3 ML NEBULIZER NEB PRN ×3 (01:47→21:09)
[2022-06-02] MEDS: PIPERACILLIN SODIUM/TAZOBACTAM 3.375 GM in DEXTROSE 5% IN WATER 50 ML IV SCH ×4 (05:10→23:49)
[2022-06-02] MEDS: 0.9 % SODIUM CHLORIDE 10 ML SYRINGE IV SCH ×3 (05:12→23:49)
[2022-06-02] MEDS: IPRATROPIUM/ALBUTEROL 3 ML AMPUL.NEB NEB SCH ×3 (05:12→17:30)
[2022-06-02] MEDS: HYDROcodone/APAP 5/325MG TABLET PO PRN ×3 (06:15→20:40)
[2022-06-02 06:40] LABS: Basophils # (Auto) 0.05 K/mcL (0.00-0.30); Basophils % (Auto) 0.3 % (0.0-2.0); Eosinophils # (Auto) 0.07 K/mcL (0.00-0.70); Eosinophils % (Auto) 0.4 % (0.0-7.0); Hematocrit 49.1 % (40.1-51.0); Hemoglobin 16.5 g/dL (13.7-17.5); Lymphocytes % (Auto) 8.3 % (15.5-49.0); Mean Cell Volume 91.6 fL (80.0-100.0); Mean Corpuscular HGB Conc 33.6 g/dL (31.0-36.0); Mean Platelet Volume 11.2 fL (8.8-12.5); Monocytes # (Auto) 1.81 K/mcL (0.10-0.90); Monocytes % (Auto) 10.8 % (1.0-12.0); Neutrophils % (Auto) 79.7 % (38.0-78.0); Platelet Count 288 K/mcL (140-440); RBC 5.36 M/mcL (4.63-6.08); Red Cell Distribution Width 12.5 % (11.5-14.5); WBC 16.8 K/mcL (4.5-11.0)
[2022-06-02] MEDS: SODIUM CHLORIDE 0.9% INH SCH ×2 (07:07→20:39)
[2022-06-02] MEDS: METRONIDAZOLE 0.75% TOPICAL SCH (07:07)
[2022-06-02 07:09] LABS: ALT/SGPT 27 U/L (<40); AST/SGOT 21 U/L (<40); Albumin 2.9 gm/dL (3.2-5.2); Albumin/Globulin Ratio 0.8 (1.0-2.3); Alkaline Phosphatase 146 U/L (39-117); Bilirubin,Direct 0.4 mg/dL (<0.3); Bilirubin,Total 0.8 mg/dL (0.1-1.0); Blood Urea Nitrogen 12 mg/dL (6-20); Calcium 8.6 mg/dL (8.6-10.4); Carbon Dioxide 26 mmol/L (22-30); Chloride 100 mmol/L (96-108); Globulin 3.7 gm/dL (2.2-3.7); Glomerular Filtration Rate 143; Glucose 100 mg/dL (70-105); Lactate Dehydrogenase 159 U/L (135-225); Phosphorous 1.9 mg/dL (2.5-4.5); Triglycerides 75 mg/dL (<150); Uric Acid 1.1 mg/dL (2.5-8.0)
[2022-06-02] MEDS: SERTRALINE 50 MG TABLET PO SCH (08:09)
[2022-06-02] MEDS: amLODIPine 5 MG TABLET PO SCH (08:09)
[2022-06-02] MEDS: OMEPRAZOLE 20 MG CAPSULE PO SCH (08:09)
[2022-06-02] MEDS: carBAMazepine 100 MG TAB.CHEW PO SCH ×4 (08:10→20:39)
[2022-06-02] MEDS: BACLOFEN 10 MG TABLET PO SCH ×3 (08:10→20:49)
[2022-06-02] MEDS: ENOXAPARIN 40 MG/0.4 ML SYRINGE SQ SCH (08:10)
--- NOTE | 2022-06-02 08:23 | Internal Med Progress Note ---
SUBJECTIVE Subjective Patient information: Note initiated : 06/02/22 at 8:15 am Service Date, if different from initiated Date: [] Patient: Juan F Chang a 46 y/o M admitted on 06/01/22 for Shortness of breath-Pneumonia. Chief Complaint: [] Interval history: History of present illness: Mr. Chang is a 46 year old M Patient with cerebral palsy as noted to have rapid breathing and pale skin per father who was concerned about hypoxia and thus brought him in. Patient was seen in the ED several days prior and diagnosed with pneumonia and sent home with antibiotics. His baseline oxygen requirement is 2 L via trach collar. In the ER he was noted to be tachycardic and tachypneic. He was afebrile although was febrile on the previous ED visit. He also had a leukocytosis of 17,000, and an elevated lactate at 2.8. He then had a sudden increase in his heart rate up to 150s. Patient was treated with adenosine and Lopressor and heart rate came back down to the 120s. Looks like on old vital signs he is commonly tachycardic but usually in the low 100s to 110s. In discussion with family they say he is breathing is more labored. And they typically suction quite a bit of phlegm orally but have not been able to get much yesterday. He also said his heart rate does run high. Last bout of pneumonia was about 4 years ago they say and did have it frequently prior to that. He is on continuous tube feedings and they do pause for elevated residuals. 06/01 Patient did not sleep well per family but does have a hard time sleeping anyway. Sputum culture Pseudomonas a. Febrile last night but fever curve improving. Leukocytosis present slightly improved. Review of system: Unable to obtain as patient is nonverbal Constitutional Vitals: Vital Signs Temp Pulse Resp BP Pulse Ox O2 Del Method O2 Flow Rate 99.6 F H 124 H 37 H 141/105 98 15 06/02/22 08:01 06/02/22 08:01 06/02/22 08:01 06/02/22 08:01 06/02/22 08:01 06/02/22 06:32 06/01/22 18:50 Period Temp Pulse Resp BP Sys/Ortega Pulse Ox O2 Del Method O2 Flow Rate Last 24 Hr 99.4 F-101.8 F 96-142 17-42 117-184/78-114 90-100 Aerosol Mask, Trach Mask-Trach Mask 14-15 Intake and Output 06/01/22 06/02/22 06/02/22 19:59 03:59 11:59 Intake Total 400 770 160 Output Total 1260 350 0 Balance -860 420 160 Weight 53.297 kg 53.342 kg Intake & Output: Intake & Output 06/01/22 06/02/22 06/02/22 19:59 03:59 11:59 Intake Total 400 770 160 Output Total 1260 350 0 Balance -860 420 160 Weight 53.297 kg 53.342 kg Intake: IV 100 180 Heparin/0.45%Ns 25,000 Unit In 0 Premix 1 Bag @ 18 UNIT/KG/HR 17 .962 mls/hr IV .Q24H [facility] Rx#: [id number] Lactated Ringers 1,000 ml @ 50 0 mls/hr IV .Q20H [facility] Rx#: [id number] Zosyn 3.375 gm In Dextrose 5% 100 50 in Water 50 ml @ 100 mls/hr IV Q6H [facility] Rx#:[id number] Oral 0 Tube Feeding 300 400 0 GI Tube Flush 190 160 Output: Gastric Drainage 0 PEG 0 Urine Catheter Amount 1260 350 Other: Urine Appearance Clear Clear Clear External Urinary Catheter Clear Urine Color Dark Yellow Light Elly Dark Yellow External Urinary Catheter Dark Yellow Urine Odor Normal Normal Normal External Urinary Catheter Normal Exam: General: Alert, Awake, No acute Distress Eyes/N/T: EOMI,, trach in place Head/Neck: neck supple, CV: Tachycardic but regular, Pulm: Mild rhonchi b/l better, mild wheezing b/l Abd: soft, nontender, +BS x4 Ext: no clubbing/cyanosis/edema Neuro: Alert, spontaneously moves all extremities, Skin: warm/dry OBJ DATA Labs CBC & Chem 7: 06/02/22 04:49 06/02/22 04:49 Labs: Abnormal Lab Results 06/02/22 06/02/22 05/31/22 04:49 04:49 23:26 WBC 16.8 H Hct Neut % (Auto) 79.7 H Lymph % (Auto) 8.3 L Lymph # (Auto) 1.[address] [facility] # (Auto) 1.81 H Immature Gran # 0.09 H Absolute Neutrophils 13.35 H D-Dimer POC VBG Base Excess 3.0 H VBG Lactic Acid 2.8 H Chloride Creatinine 0.4 L Uric Acid 1.1 L Phosphorus 1.9 L Direct Bilirubin 0.4 H GGT 302 H Alkaline Phosphatase 146 H Albumin 2.9 L Albumin/Globulin Ratio 0.8 L 05/31/22 05/31/22 05/31/22 23:20 23:20 23:20 WBC 17.2 H Hct 51.3 H Neut % (Auto) Lymph % (Auto) 13.7 L Lymph # (Auto) [facility] # (Auto) 1.25 H Immature Gran # 0.06 H Absolute Neutrophils 13.13 H D-Dimer 1.46 H POC VBG Base Excess VBG Lactic Acid Chloride 95 L Creatinine 0.4 L Uric Acid Phosphorus Direct Bilirubin GGT Alkaline Phosphatase 183 H Albumin Albumin/Globulin Ratio Meds: Medications Acetaminophen (Acetaminophen 325 Mg Tablet) 650 mg PO Q6HP PRN; Protocol PRN Reason: Per Pain Protocol/Fever > 101 Hydrocodone Bitart/Acetaminophen (Hydrocodone/Apap 5/325mg Tablet) 1 tab PO TIDP PRN; Protocol PRN Reason: pain Last Admin: 06/01/22 20:35 Dose: 1 tab Albuterol Sulfate (Albuterol Sulfate 2.5 Mg/3 Ml Nebulizer) 2.5 mg NEB Q4HRT PRN PRN Reason: Shortness Of Breath Last Admin: 06/02/22 01:47 Dose: 2.5 mg Albuterol/Ipratropium (Ipratropium/Albuterol 3 Ml Ampul.Neb) 3 ml NEB Q6H [facility] Last Admin: 06/02/22 05:12 Dose: 3 ml Albuterol/Ipratropium (Ipratropium/Albuterol 3 Ml Ampul.Neb) 3 ml NEB Q4HP PRN PRN Reason: Shortness Of Breath Amlodipine Besylate (Amlodipine 5 Mg Tablet) 5 mg PO QDAY [facility] Last Admin: 06/02/22 08:09 Dose: 5 mg Baclofen (Baclofen 10 Mg Tablet) 30 mg PO BID [facility] Last Admin: 06/02/22 08:10 Dose: 30 mg Baclofen (Baclofen 10 Mg Tablet) 20 mg PO 1300 [facility] Last Admin: 06/01/22 13:29 Dose: 20 mg Budesonide (Budesonide 0.5 Mg/2 Ml Ampul.Neb) 0.5 mg NEB Q12 [facility] Last Admin: 06/01/22 18:41 Dose: 0.5 mg Docusate Sodium (Docusate Sodium 100 Mg Capsule) 100 mg PO BID [facility] Last Admin: 06/01/22 20:37 Dose: Not Given Enoxaparin Sodium (Enoxaparin 40 Mg/0.4 Ml Syringe) 40 mg SQ DAILY [facility] Last Admin: 06/02/22 08:10 Dose: 40 mg Hydralazine HCl (Hydralazine 20 Mg/Ml Vial) 0 mg IV Q2HP PRN PRN Reason: Hypertension Last Admin: 06/01/22 14:32 Dose: 20 mg Piperacillin Sod/Tazobactam (Sod 3.375 gm/ Dextrose) 50 mls @ 100 mls/hr IV Q6H [facility]; Protocol Last Admin: 06/02/22 05:10 Dose: 100 mls/hr Potassium Chloride 40 meq/ (Dextrose) 520 mls @ 130 mls/hr IV UD PRN PRN Reason: Potassium < 3 Magnesium Sulfate (Magnesium Sulfate) 2 gm in 50 mls @ 50 mls/hr IV UD PRN PRN Reason: Magnesium </= 1.6 Acetaminophen (Ofirmev) 650 mg in 65 mls @ 130 mls/hr IV Q6HP PRN; Protocol PRN Reason: PAIN/FEVER > 101 Last Infusion: 06/02/22 03:13 Dose: Infused Labetalol HCl (Labetalol 5 Mg/Ml Ml) 0 mg IV Q2HP PRN PRN Reason: Hypertension Lactulose (Lactulose 20 Gm/30 Ml Oral.Janny) 10 gm PO DAILYP PRN PRN Reason: Constipation Lorazepam (Lorazepam 1 Mg Tablet) 1 mg PO TIDP PRN PRN Reason: anxiety Last Admin: 06/01/22 20:39 Dose: 1 mg Meclizine HCl (Meclizine 25 Mg Tablet) 12.5 mg PO TIDP PRN PRN Reason: dizziness Metoprolol Tartrate (Metoprolol Tartrate 5 Mg/5 Ml Vial) 5 mg IV Q2HP PRN PRN Reason: Tachyarrhythmias HR>110 Last Admin: 06/02/22 05:12 Dose: 5 mg Omeprazole (Omeprazole 20 Mg Capsule) 20 mg PO QDAY [facility] Last Admin: 06/02/22 08:09 Dose: 20 mg Ondansetron HCl (Ondansetron 4 Mg/2 Ml Vial) 4 mg IV Q4HP PRN PRN Reason: Nausea And Vomiting Metronidazole 0.75 % (Gel) 1 dose TOPICAL QDAY [facility] Last Admin: 06/02/22 07:07 Dose: Not Given Sodium Chloride 0.9 % Solution For Nebulization 1 dose INH Q12H [facility] Last Admin: 06/02/22 07:07 Dose: Not Given Carbamazepine 100 Mg (Tab.Chew) 100 dose PO QID [facility] Last Admin: 06/02/22 08:10 Dose: 100 dose Polyethylene Glycol (Polyethylene Glycol 3350 17 Gm Packet) 17 gm PO DAILYP PRN PRN Reason: Constipation Potassium Chloride (Potassium Chloride 20 Meq Tablet) 40 meq PO UD PRN PRN Reason: Potssium is 3-3.5 Potassium Chloride (Potassium Chloride 20 Meq Tablet) 40 meq PO UD PRN PRN Reason: Potassium < 3 Senna (Sennosides 1 Tablet) 2 tab PO HSP PRN PRN Reason: Constipation Senna (Sennosides 1 Tablet) 1 tab PO Q48H [facility] Senna (Sennosides 1 Tablet) 2 tab PO Q48H [facility] Sertraline HCl (Sertraline 50 Mg Tablet) 50 mg PO QDAY [facility] Last Admin: 06/02/22 08:09 Dose: 50 mg Sodium Chloride (0.9 % Sodium Chloride 10 Ml Syringe) 10 ml IV Q8 [facility] Last Admin: 06/02/22 05:12 Dose: 10 ml A/P Narrative A/P Narrative: A: *PNA(SC with GNB/GPB/GPC), most likely Aspiration: -flu/rsv/covid neg *Sepsis: 2/2 above -febrile last night but curve improving. leukocytosis *Cerebral palsy w/spasticity: *Seizure d/o: *Anxiety: *Hypophosphatemia: *HTN: *GERD: *Asthma: *Tachycardia, sinus, chronic: P: -cont zosyn for now, pending SC -TF's -O2 Supp -suctioning -duonebs, RT -Monitor and replace electrolytes -Continue home norvasc/baclofen/carbamazepine/ssri -ppx: Lovenox / home PPI Time Spent With Patient Time: Total time spent is greater than 50% in coordination of care (as documented) at patient's floor/unit and/or counseling patient: Total time spent with greater than 50% in coordination of care (as documented) at patient's floor/unit and/or counseling patient:: 25 - 35 minutes QUALITY Stroke Symptom Onset Unknown: No VTE Deep Vein Thrombosis/Pulmonary Embolism Present on Admission: No
--- NOTE | 2022-06-02 08:36 | EKG ---
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
--- NOTE | 2022-06-02 08:37 | EKG ---
[facility] Test Date: 2022-06-01 Pat Name: Juan F Chang Department: ICU Room: 118 Gender: Male Senior Project Controls Specialist: BERNADETTE : 1975 Requested By: Abhinav Rutherford Order Number: [id number] Reading MD: Bruce Castaneda Measurements Intervals [place] Rate: 139 P: 43 [place]: 128 QRS: 145 QRSD: 72 T: -17 QT: 292 QTc: 444 Interpretive Statements Sinus tachycardia Baseline wander in lead(s) I,aVR,V4,V5 Electronically Signed On 06-02-2022 8:36:48 PST by Bruce Castaneda /store/[email or web address]/[id number]/[id number]
--- NOTE | 2022-06-02 08:37 | EKG ---
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
[2022-06-02] MEDS: BUDESONIDE 0.5 MG/2 ML AMPUL.NEB NEB SCH ×2 (08:41→19:09)
[2022-06-02] MEDS: IPRATROPIUM/ALBUTEROL 3 ML AMPUL.NEB NEB PRN (08:42)
[2022-06-02] MEDS ORDERED: BISACODYL 10 MG SUPP.RECT PR PRN (09:13)
[2022-06-02] MEDS: SENNOSIDES 1 TABLET PO SCH (09:26)
[2022-06-02] MEDS: DOCUSATE SODIUM 10 MG/ML ML PO SCH ×2 (09:27→20:34)
[2022-06-02] MEDS ORDERED: POTASSIUM PHOSPHATE 40 MEQ in DEXTROSE 5% IN WATER 500 ML IV SCH (09:30)
--- NOTE | 2022-06-02 10:26 | Discharge Summary ---
Discharge Provider Provider IMPORTANT FOLLOW-UP INFORMATION FOR PCP: Patient information: Note initiated : 06/02/22 at 10:24 am Service Date, if different from initiated Date: [] Patient: Juan F Chang a 46 y/o M admitted on 06/01/22 for Shortness of breath-Pneumonia. Chief Complaint: [] Date of admission: 06/01/22 11:53 Discharge date: 06/04/22 Primary care physician: Damian Wang MD COURSE Hospital Course Hospital course: History of present illness: Mr. Chang is a 46 year old M Patient with cerebral palsy as noted to have rapid breathing and pale skin per father who was concerned about hypoxia and thus brought him in. Patient was seen in the ED several days prior and diagnosed with pneumonia and sent home with antibiotics. His baseline oxygen requirement is 2 L via trach collar. In the ER he was noted to be tachycardic and tachypneic. He was afebrile although was febrile on the previous ED visit. He also had a leukocytosis of 17,000, and an elevated lactate at 2.8. He then had a sudden increase in his heart rate up to 150s. Patient was treated with adenosine and Lopressor and heart rate came back down to the 120s. Looks like on old vital signs he is commonly tachycardic but usually in the low 100s to 110s. In discussion with family they say he is breathing is more labored. And they typically suction quite a bit of phlegm orally but have not been able to get much yesterday. He also said his heart rate does run high. Last bout of pneumonia was about 4 years ago they say and did have it frequently prior to that. He is on continuous tube feedings and they do pause for elevated residuals. 06/01 Patient did not sleep well per family but does have a hard time sleeping anyway. Sputum culture Pseudomonas a. Febrile last night but fever curve improving. Leukocytosis present slightly improved. 06/02 Family feels patient is doing little better. Patient looks a bit more comfortable and doing well. Sputum culture with Pseudomonas. Leukocytosis slowly improving. Phosphorus low. 06/03 Patient continues to look more baseline per family. Holding bowel meds for significant bowel output yesterday. A: *PNA(SC with GNB/GPB/GPC, Pseudomonas cultured), most likely Aspiration: -flu/rsv/covid neg -Pseudomonas intermediate resistance to Cipro *Sepsis: 2/2 above -Tmax o/n 100.1, curve continues to improv. leukocytosis *Cerebral palsy w/spasticity: *Seizure d/o: *Anxiety: *Hypophosphatemia: *HTN: *GERD: *Asthma: *Tachycardia, sinus, chronic: P: -Cefepime Discharge diagnosis: Pneumonia with Pseudomonas and likely aspiration sepsis Secondary discharge diagnosis: Cerebral palsy seizure disorder anxiety hypophosphatemia hypertension GERD asthma sinus tach Time Spent with Patient Time attestation: Total time spent providing and/or coordinating discharge services: Time spent: Greater than 30 minutes EXAM Constitutional Vitals: Temp Pulse Resp BP Pulse Ox O2 Del Method O2 Flow Rate 99.6 F H 120 H 32 H 154/111 94 14 06/02/22 10:16 06/02/22 10:01 06/02/22 10:01 06/02/22 10:01 06/02/22 10:01 06/02/22 09:11 06/02/22 09:11 Discharge Data Data Completed and Pending Labs on day of discharge: Labs from last 24 hours 06/02/22 06/02/22 04:49 04:49 WBC 16.8 H RBC 5.36 Hgb 16.5 Hct 49.1 MCV 91.6 MCH 30.8 MCHC 33.6 RDW 12.5 Plt Count 288 MPV 11.2 Immature Gran % (Auto) 0.5 Neut % (Auto) 79.7 H Lymph % (Auto) 8.3 L Price % (Auto) 10.8 Eos % (Auto) 0.4 Baso % (Auto) 0.3 Lymph # (Auto) 1.40 L Price # (Auto) 1.81 H Eos # (Auto) 0.07 Baso # (Auto) 0.05 Immature Gran # 0.09 H Absolute Neutrophils 13.35 H Sodium 138 Potassium 3.7 Chloride 100 Carbon Dioxide 26 Anion Gap 12.0 BUN 12 Creatinine 0.4 L GFR Calculation 143 Glucose 100 Uric Acid 1.1 L Calcium 8.6 Phosphorus 1.9 L Magnesium 2.0 Total Bilirubin 0.8 Direct Bilirubin 0.4 H GGT 302 H AST 21 ALT 27 Alkaline Phosphatase 146 H Lactate Dehydrogenase 159 Total Protein 6.6 Albumin 2.9 L Globulin 3.7 Albumin/Globulin Ratio 0.8 L Triglycerides 75 Discharge Plan Patient/Caregiver Discharge Instructions Activity: increase activity as tolerated Prescriptions: New cefepime 2 gram recon soln 2 g IV Q8H Qty: 18 0RF Continued (DME) Compact Compressor Combo Pack with Air Filters Qty: 2 0RF Rx Instructions: (DME) Suction Catheter mini tray 14 fr Qty: 400 11RF Rx Instructions: As directed sodium chloride 0.9 % solution for nebulization 3 ml INHALATION Q12H Qty: 300 3RF meclizine 12.5 mg tablet 12.5 mg PO TID PRN (Reason: dizziness) Qty: 30 1RF ipratropium-albuterol 0.5 mg-3 mg(2.5 mg base)/3 mL solution for nebulization 3 ml INHALATION QID Qty: 1080 3RF Rx Instructions: Scheduled with albuterol 05:00, 11:00, 17:00, 23:00 ([facility] [place] Balloon PEG tube See Rx Instructions .Route .MEDSUPPLY Qty: 1 0RF Rx Instructions: As directed baclofen 20 mg tablet 20 mg PO .COMPLEX PRN (Reason: muscle spasm) Qty: 360 1RF Label Comments: Take 1 & 1/2 tablet by mouth three times daily as needed Rx Instructions: 20 mg PO Take 1.5 tab q am, 1 tab afternoon and 1.5 tab q evening, do not exceed 80 mg a day PRN budesonide [Pulmicort] 0.5 mg/2 mL suspension for nebulization 0.5 mg INHALATION BID Qty: 360 3RF carbamazepine 100 mg tablet,chewable 100 mg PO QID Qty: 120 5RF Label Comments: Crush 1 tablet and give via tube 4 times daily Rx Instructions: Given at home at 0500, 1100, 1700, 2200 hydrocodone-acetaminophen 5-325 mg tablet 1 tab PO TID PRN (Reason: pain) Qty: 90 0RF Rx Instructions: Rx must last 30 days omeprazole 20 mg capsule,delayed release(DR/EC) 20 mg PO QDAY Qty: 90 3RF Label Comments: Dissolve the contents of one capsule in apple or cranberry juice and give to Aba one daily amlodipine [Norvasc] 5 mg tablet 5 mg PO QDAY Qty: 90 1RF sertraline [Zoloft] 50 mg tablet 50 mg PO QDAY Qty: 90 1RF Rx Instructions: *Crush tabs lorazepam [Ativan] 1 mg tablet 1 mg PO TID PRN (Reason: anxiety) Qty: 90 2RF Rx Instructions: *to be administered through Peg-tube (DME) Curaplex Nebulizer PEG [id number] N Qty: 1 0RF Rx Instructions: Standard Flow Adapter (DME) Dual Port Feeding Adaptor Qty: 1 11RF Dose Instruction: As directed Rx Instructions: As directed polyethylene glycol 3350 [Miralax] 17 gram/dose powder See Rx Instructions PO QDAY Rx Instructions: 5 ml PO daily ketoconazole 2 % cream 1 applic TOPICAL BID 21 Days Qty: 30 0RF (DME) wheelchair Qty: 1 0RF Rx Instructions: As directed doxycycline hyclate 100 mg tablet 100 mg PO QDAY metronidazole 0.75 % gel 1 applic topical QDAY senna 8.6 mg capsule 8.6 mg PO .COMPLEX Rx Instructions: 8.6 mg PO 1 qd, then 2 qd alternating; albuterol sulfate 2.5 mg /3 mL (0.083 %) solution for nebulization 2.5 mg INHALATION Q2H PRN (Reason: bronchospasm) 30 Days Qty: 1080 5RF Rx Instructions: Scheduled 05:00, 11:00, 17:00, and 23:00. Discontinued ciprofloxacin 500 mg/5 mL suspension,microcapsule recon 750 mg PO Q12H 10 Days Qty: 150 0RF amoxicillin-pot clavulanate [Augmentin ES-600] 600-42.9 mg/5 mL suspension for reconstitution 7.3 ml PO BID 10 Days Qty: 146 0RF Follow Up Plan Follow up with: Damian Wang MD [Primary Care Provider] - Patient Disposition: Home Health Service Prognosis: Undetermined Overall status at discharge: patient is progressing back to baseline Discharge Orders: Discharge Order (Routine); Ordered 06/04/22 [facility] Thrombosis/Pulmonary Embolism Present on Admission: No
[2022-06-02] MEDS: LORazepam 1 MG TABLET PO PRN ×2 (15:12→20:38)
[2022-06-03] MEDS: IPRATROPIUM/ALBUTEROL 3 ML AMPUL.NEB NEB SCH ×5 (01:30→22:42)
[2022-06-03] MEDS: METOPROLOL TARTRATE 5 MG/5 ML VIAL IV PRN ×4 (02:09→21:48)
[2022-06-03] MEDS: LORazepam 1 MG TABLET PO PRN ×3 (03:44→21:48)
[2022-06-03] MEDS: HYDROcodone/APAP 5/325MG TABLET PO PRN ×2 (03:44→21:48)
[2022-06-03] MEDS: ALBUTEROL SULFATE 2.5 MG/3 ML NEBULIZER NEB PRN (03:45)
[2022-06-03] MEDS: PIPERACILLIN SODIUM/TAZOBACTAM 3.375 GM in DEXTROSE 5% IN WATER 50 ML IV SCH ×3 (05:25→17:46)
[2022-06-03] MEDS: 0.9 % SODIUM CHLORIDE 10 ML SYRINGE IV SCH ×3 (05:27→21:47)
[2022-06-03 07:18] LABS: Basophils # (Auto) 0.06 K/mcL (0.00-0.30); Basophils % (Auto) 0.4 % (0.0-2.0); Eosinophils # (Auto) 0.08 K/mcL (0.00-0.70); Eosinophils % (Auto) 0.5 % (0.0-7.0); Hematocrit 52.6 % (40.1-51.0); Hemoglobin 17.4 g/dL (13.7-17.5); Lymphocytes # (Auto) 1.47 K/mcL (1.50-4.80); Lymphocytes % (Auto) 8.8 % (15.5-49.0); Mean Corpuscular HGB Conc 33.1 g/dL (31.0-36.0); Mean Platelet Volume 11.1 fL (8.8-12.5); Monocytes % (Auto) 10.8 % (1.0-12.0); Platelet Count 322 K/mcL (140-440); RBC 5.72 M/mcL (4.63-6.08); Red Cell Distribution Width 12.6 % (11.5-14.5); WBC 16.7 K/mcL (4.5-11.0)
--- NOTE | 2022-06-03 07:32 | Internal Med Progress Note ---
SUBJECTIVE Subjective Patient information: Note initiated : 06/03/22 at 7:30 am Service Date, if different from initiated Date: [] Patient: Juan F Chang a 47 y/o M admitted on 06/01/22 for Shortness of breath-Pneumonia. Chief Complaint: [] Interval history: History of present illness: Mr. Chang is a 46 year old M Patient with cerebral palsy as noted to have rapid breathing and pale skin per father who was concerned about hypoxia and thus brought him in. Patient was seen in the ED several days prior and diagnosed with pneumonia and sent home with antibiotics. His baseline oxygen requirement is 2 L via trach collar. In the ER he was noted to be tachycardic and tachypneic. He was afebrile although was febrile on the previous ED visit. He also had a leukocytosis of 17,000, and an elevated lactate at 2.8. He then had a sudden increase in his heart rate up to 150s. Patient was treated with adenosine and Lopressor and heart rate came back down to the 120s. Looks like on old vital signs he is commonly tachycardic but usually in the low 100s to 110s. In discussion with family they say he is breathing is more labored. And they typically suction quite a bit of phlegm orally but have not been able to get much yesterday. He also said his heart rate does run high. Last bout of pneumonia was about 4 years ago they say and did have it frequently prior to that. He is on continuous tube feedings and they do pause for elevated residuals. 06/01 Patient did not sleep well per family but does have a hard time sleeping anyway. Sputum culture Pseudomonas a. Febrile last night but fever curve improving. Leukocytosis present slightly improved. 06/02 Family feels patient is doing little better. Patient looks a bit more c omfortable and doing well. Sputum culture with Pseudomonas. Leukocytosis slowly improving. Phosphorus low. 06/03 Patient continues to look more baseline per family. Holding bowel meds for significant bowel output yesterday. Review of system: Unable to obtain as patient is nonverbal Constitutional Vitals: Vital Signs Temp Pulse Resp BP Pulse Ox O2 Del Method O2 Flow Rate 99.9 F H 125 H 24 H 118/91 96 14 06/03/22 04:10 06/03/22 06:12 06/03/22 06:12 06/03/22 06:00 06/03/22 06:12 06/03/22 06:00 06/02/22 09:11 Period Temp Pulse Resp BP Sys/Ortega Pulse Ox O2 Del Method O2 Flow Rate Last 24 Hr 97.8 F-100.4 F 80-135 22-40 98-172/65-123 91-99 Aerosol Mask, Trach Mask-Trach Mask 14 Intake and Output 06/02/22 06/03/22 06/03/22 19:59 03:59 11:59 Intake Total 1828 1150.0909 1095 Output Total 250 450 Balance 1578 1150.0909 645 Weight 51.483 kg Intake & Output: Intake & Output 06/02/22 06/03/22 06/03/22 19:59 03:59 11:59 Intake Total 1828 1150.0909 1095 Output Total 250 450 Balance 1578 1150.0909 645 Weight 51.483 kg Intake: IV 561 913.5328 50 Zosyn 3.375 gm In Dextrose 5% 100 50 50 in Water 50 ml @ 100 mls/hr IV Q6H [facility] Rx#:[id number] Potassium Phosphate 40 Meq In 509.0909 Dextrose 5% in Water 500 ml @ 50.909 mls/hr IV 0930 [facility] Rx#: [id number] Oral 346 Tube Feeding 1022 366 945 GI Tube Flush 360 160 100 Output: Gastric Drainage 0 PEG 0 Void Amount 250 450 Other: Urine Appearance Clear Urine Color Dark Yellow Dark Elly Urine Odor Normal Stool Size Large Large Small Stool Color Brown Brown Brown Stool Consistency Soft Soft Loose # Bowel Movements 1 # of times incontinent of 1 Bowels Exam: General: Alert, Awake, No acute Distress Eyes/N/T: EOMI,, trach in place Head/Neck: neck supple, CV: Tachycardic but regular, Pulm: Mild rhonchi b/l continues to improve, mild wheezing b/l Abd: soft, nontender, +BS x4 Ext: no clubbing/cyanosis/edema Neuro: Alert, spontaneously moves all extremities, Skin: warm/dry OBJ DATA Labs CBC & Chem 7: 06/03/22 05:01 06/03/22 05:01 Labs: Abnormal Lab Results 06/03/22 06/02/22 06/02/22 05:01 04:49 04:49 WBC 16.7 H 16.8 H Hct 52.6 H Neut % (Auto) 79.0 H 79.7 H Lymph % (Auto) 8.8 L 8.3 L Lymph # (Auto) 1.47 L 1.40 L Valley # (Auto) 1.80 H 1.81 H Immature Gran # 0.08 H 0.09 H Absolute Neutrophils 13.20 H 13.35 H D-Dimer POC VBG Base Excess VBG Lactic Acid Chloride Creatinine 0.4 L Uric Acid 1.1 L Phosphorus 1.9 L Direct Bilirubin 0.4 H GGT 302 H Alkaline Phosphatase 146 H Albumin 2.9 L Albumin/Globulin Ratio 0.8 L 05/31/22 05/31/22 05/31/22 23:26 23:20 23:20 WBC Hct Neut % (Auto) Lymph % (Auto) Lymph # (Auto) Valley # (Auto) Immature Gran # Absolute Neutrophils D-Dimer 1.46 H POC VBG Base Excess 3.0 H VBG Lactic Acid 2.8 H Chloride 95 L Creatinine 0.4 L Uric Acid Phosphorus Direct Bilirubin GGT Alkaline Phosphatase 183 H Albumin Albumin/Globulin Ratio 05/31/22 23:20 WBC 17.2 H Hct 51.3 H Neut % (Auto) Lymph % (Auto) 13.7 L Lymph # (Auto) Valley # (Auto) 1.25 H Immature Gran # 0.06 H Absolute Neutrophils 13.13 H D-Dimer POC VBG Base Excess VBG Lactic Acid Chloride Creatinine Uric Acid Phosphorus Direct Bilirubin GGT Alkaline Phosphatase Albumin Albumin/Globulin Ratio Meds: Medications Acetaminophen (Acetaminophen 325 Mg Tablet) 650 mg PO Q6HP PRN; Protocol PRN Reason: Per Pain Protocol/Fever > 101 Hydrocodone Bitart/Acetaminophen (Hydrocodone/Apap 5/325mg Tablet) 1 tab PO TIDP PRN; Protocol PRN Reason: pain Last Admin: 06/03/22 03:44 Dose: 1 tab Albuterol Sulfate (Albuterol Sulfate 2.5 Mg/3 Ml Nebulizer) 2.5 mg NEB Q4HRT PRN PRN Reason: Shortness Of Breath Last Admin: 06/03/22 03:45 Dose: 2.5 mg Albuterol/Ipratropium (Ipratropium/Albuterol 3 Ml Ampul.Neb) 3 ml NEB Q6H [facility] Last Admin: 06/03/22 05:26 Dose: 3 ml Albuterol/Ipratropium (Ipratropium/Albuterol 3 Ml Ampul.Neb) 3 ml NEB Q4HP PRN PRN Reason: Shortness Of Breath Last Admin: 06/02/22 08:42 Dose: 3 ml Amlodipine Besylate (Amlodipine 5 Mg Tablet) 5 mg PO QDAY [facility] Last Admin: 06/02/22 08:09 Dose: 5 mg Baclofen (Baclofen 10 Mg Tablet) 30 mg PO BID [facility] Last Admin: 06/02/22 20:49 Dose: 30 mg Baclofen (Baclofen 10 Mg Tablet) 20 mg PO 1300 [facility] Last Admin: 06/02/22 13:42 Dose: 20 mg Bisacodyl (Bisacodyl 10 Mg Supp.Rect) 10 mg MD DAILYP PRN PRN Reason: Constipation Last Admin: 06/02/22 09:27 Dose: 10 mg Budesonide (Budesonide 0.5 Mg/2 Ml Ampul.Neb) 0.5 mg NEB Q12 [facility] Last Admin: 06/02/22 19:09 Dose: 0.5 mg Docusate Sodium (Docusate Sodium 10 Mg/Ml Ml) 100 mg PO BID [facility] Last Admin: 06/02/22 20:34 Dose: Not Given Enoxaparin Sodium (Enoxaparin 40 Mg/0.4 Ml Syringe) 40 mg SQ DAILY [facility] Last Admin: 06/02/22 08:10 Dose: 40 mg Hydralazine HCl (Hydralazine 20 Mg/Ml Vial) 0 mg IV Q2HP PRN PRN Reason: Hypertension Last Admin: 06/01/22 14:32 Dose: 20 mg Piperacillin Sod/Tazobactam (Sod 3.375 gm/ Dextrose) 50 mls @ 100 mls/hr IV Q6H [facility]; Protocol Last Infusion: 06/03/22 05:55 Dose: Infused Potassium Chloride 40 meq/ (Dextrose) 520 mls @ 130 mls/hr IV UD PRN PRN Reason: Potassium < 3 Magnesium Sulfate (Magnesium Sulfate) 2 gm in 50 mls @ 50 mls/hr IV UD PRN PRN Reason: Magnesium </= 1.6 Acetaminophen (Ofirmev) 650 mg in 65 mls @ 130 mls/hr IV Q6HP PRN; Protocol PRN Reason: PAIN/FEVER > 101 Last Infusion: 06/02/22 23:21 Dose: Infused Labetalol HCl (Labetalol 5 Mg/Ml Ml) 0 mg IV Q2HP PRN PRN Reason: Hypertension Lactulose (Lactulose 20 Gm/30 Ml Oral.Janny) 10 gm PO DAILYP PRN PRN Reason: Constipation Lorazepam (Lorazepam 1 Mg Tablet) 1 mg PO TIDP PRN PRN Reason: anxiety Last Admin: 06/03/22 03:44 Dose: 1 mg Meclizine HCl (Meclizine 25 Mg Tablet) 12.5 mg PO TIDP PRN PRN Reason: dizziness Metoprolol Tartrate (Metoprolol Tartrate 5 Mg/5 Ml Vial) 5 mg IV Q2HP PRN PRN Reason: Tachyarrhythmias HR>110 Last Admin: 06/03/22 03:45 Dose: 5 mg Omeprazole (Omeprazole 20 Mg Capsule) 20 mg PO QDAY [facility] Last Admin: 06/02/22 08:09 Dose: 20 mg Ondansetron HCl (Ondansetron 4 Mg/2 Ml Vial) 4 mg IV Q4HP PRN PRN Reason: Nausea And Vomiting Metronidazole 0.75 % (Gel) 1 dose TOPICAL QDAY [facility] Last Admin: 06/02/22 07:07 Dose: Not Given Sodium Chloride 0.9 % Solution For Nebulization 1 dose INH Q12H [facility] Last Admin: 06/02/22 20:39 Dose: Not Given Carbamazepine 100 Mg (Tab.Chew) 100 dose PO QID [facility] Last Admin: 06/02/22 20:39 Dose: 100 dose Polyethylene Glycol (Polyethylene Glycol 3350 17 Gm Packet) 17 gm PO DAILYP PRN PRN Reason: Constipation Last Admin: 06/02/22 09:27 Dose: 17 gm Potassium Chloride (Potassium Chloride 20 Meq Tablet) 40 meq PO UD PRN PRN Reason: Potssium is 3-3.5 Potassium Chloride (Potassium Chloride 20 Meq Tablet) 40 meq PO UD PRN PRN Reason: Potassium < 3 Senna (Sennosides 1 Tablet) 2 tab PO HSP PRN PRN Reason: Constipation Senna (Sennosides 1 Tablet) 1 tab PO Q48H [facility] Last Admin: 06/02/22 09:26 Dose: 1 tab Senna (Sennosides 1 Tablet) 2 tab PO Q48H [facility] Sertraline HCl (Sertraline 50 Mg Tablet) 50 mg PO QDAY [facility] Last Admin: 06/02/22 08:09 Dose: 50 mg Sodium Chloride (0.9 % Sodium Chloride 10 Ml Syringe) 10 ml IV Q8 [facility] Last Admin: 06/03/22 05:27 Dose: 10 ml A/P Narrative A/P Narrative: A: *PNA(SC with GNB/GPB/GPC, Pseudomonas cultured), most likely Aspiration: -flu/rsv/covid neg -Pseudomonas intermediate resistance to Cipro *Sepsis: 2/2 above -Tmax o/n 100.1, curve continues to improv. leukocytosis *Cerebral palsy w/spasticity: *Seizure d/o: *Anxiety: *Hypophosphatemia: *HTN: *GERD: *Asthma: *Tachycardia, sinus, chronic: P: -cont zosyn for now -TF's -O2 Supp -suctioning -duonebs, RT -Monitor and replace electrolytes -Continue home norvasc/baclofen/carbamazepine/ssri -ppx: Lovenox / home PPI Time Spent With Patient Time: Total time spent is greater than 50% in coordination of care (as documented) at patient's floor/unit and/or counseling patient: Total time spent with greater than 50% in coordination of care (as documented) at patient's floor/unit and/or counseling patient:: 25 - 35 minutes QUALITY Stroke Symptom Onset Unknown: No VTE Deep Vein Thrombosis/Pulmonary Embolism Present on Admission: No
[2022-06-03] MEDS: SERTRALINE 50 MG TABLET PO SCH (08:00)
[2022-06-03] MEDS: amLODIPine 5 MG TABLET PO SCH (08:00)
[2022-06-03] MEDS: ENOXAPARIN 40 MG/0.4 ML SYRINGE SQ SCH (08:01)
[2022-06-03] MEDS: BACLOFEN 10 MG TABLET PO SCH ×3 (08:01→21:46)
[2022-06-03] MEDS: OMEPRAZOLE 20 MG CAPSULE PO SCH (08:01)
[2022-06-03] MEDS: SODIUM CHLORIDE 0.9% INH SCH ×2 (08:02→21:47)
[2022-06-03] MEDS: carBAMazepine 100 MG TAB.CHEW PO SCH ×4 (08:02→21:47)
[2022-06-03] MEDS: METRONIDAZOLE 0.75% TOPICAL SCH (08:02)
[2022-06-03] MEDS: DOCUSATE SODIUM 10 MG/ML ML PO SCH ×2 (08:02→21:46)
[2022-06-03 08:11] LABS: ALT/SGPT 23 U/L (<40); AST/SGOT 21 U/L (<40); Albumin 2.8 gm/dL (3.2-5.2); Albumin/Globulin Ratio 0.7 (1.0-2.3); Alkaline Phosphatase 169 U/L (39-117); Bilirubin,Direct 0.4 mg/dL (<0.3); Bilirubin,Total 0.6 mg/dL (0.1-1.0); Blood Urea Nitrogen 17 mg/dL (6-20); Calcium 8.7 mg/dL (8.6-10.4); Carbon Dioxide 25 mmol/L (22-30); Chloride 99 mmol/L (96-108); Globulin 4.1 gm/dL (2.2-3.7); Glomerular Filtration Rate 143; Glucose 112 mg/dL (70-105); Lactate Dehydrogenase 239 U/L (135-225); Phosphorous 2.2 mg/dL (2.5-4.5); Triglycerides 131 mg/dL (<150); Uric Acid 1.7 mg/dL (2.5-8.0)
[2022-06-03] MEDS ORDERED: SENNOSIDES 1 TABLET PO SCH (09:00)
[2022-06-03] MEDS: BUDESONIDE 0.5 MG/2 ML AMPUL.NEB NEB SCH ×2 (10:08→18:08)
[2022-06-03] MEDS: ACETAMINOPHEN 650 MG/65 ML BAG IV PRN (14:44)
[2022-06-03] MEDS: IPRATROPIUM/ALBUTEROL 3 ML AMPUL.NEB NEB PRN (22:42)
[2022-06-04] MEDS: IPRATROPIUM/ALBUTEROL 3 ML AMPUL.NEB NEB SCH ×3 (00:24→11:06)
[2022-06-04] MEDS: PIPERACILLIN SODIUM/TAZOBACTAM 3.375 GM in DEXTROSE 5% IN WATER 50 ML IV SCH ×2 (00:24→05:07)
[2022-06-04] MEDS: 0.9 % SODIUM CHLORIDE 10 ML SYRINGE IV SCH ×2 (05:25→12:24)
[2022-06-04] MEDS: METOPROLOL TARTRATE 5 MG/5 ML VIAL IV PRN (06:01)
[2022-06-04 06:38] LABS: Basophils # (Auto) 0.05 K/mcL (0.00-0.30); Basophils % (Auto) 0.4 % (0.0-2.0); Eosinophils # (Auto) 0.04 K/mcL (0.00-0.70); Eosinophils % (Auto) 0.3 % (0.0-7.0); Hematocrit 51.1 % (40.1-51.0); Hemoglobin 16.8 g/dL (13.7-17.5); Lymphocytes # (Auto) 1.19 K/mcL (1.50-4.80); Lymphocytes % (Auto) 9.4 % (15.5-49.0); Mean Cell Volume 93.1 fL (80.0-100.0); Mean Corpuscular HGB Conc 32.9 g/dL (31.0-36.0); Mean Platelet Volume 10.8 fL (8.8-12.5); Monocytes # (Auto) 1.16 K/mcL (0.10-0.90); Monocytes % (Auto) 9.1 % (1.0-12.0); Neutrophils % (Auto) 80.3 % (38.0-78.0); Platelet Count 360 K/mcL (140-440); RBC 5.49 M/mcL (4.63-6.08); Red Cell Distribution Width 12.9 % (11.5-14.5); WBC 12.7 K/mcL (4.5-11.0)
[2022-06-04] MEDS: METRONIDAZOLE 0.75% TOPICAL SCH (07:16)
[2022-06-04] MEDS: SODIUM CHLORIDE 0.9% INH SCH (07:17)
[2022-06-04] MEDS: SENNOSIDES 1 TABLET PO SCH (07:17)
[2022-06-04] MEDS: DOCUSATE SODIUM 10 MG/ML ML PO SCH (07:17)
[2022-06-04] MEDS: BACLOFEN 10 MG TABLET PO SCH ×2 (07:35→12:23)
[2022-06-04] MEDS: ENOXAPARIN 40 MG/0.4 ML SYRINGE SQ SCH (07:35)
[2022-06-04] MEDS: amLODIPine 5 MG TABLET PO SCH (07:36)
[2022-06-04] MEDS: carBAMazepine 100 MG TAB.CHEW PO SCH ×2 (07:36→12:23)
[2022-06-04] MEDS: LORazepam 1 MG TABLET PO PRN (07:37)
[2022-06-04] MEDS: OMEPRAZOLE 20 MG CAPSULE PO SCH (07:37)
[2022-06-04] MEDS: SERTRALINE 50 MG TABLET PO SCH (07:37)
[2022-06-04] MEDS: CEFEPIME 2 GM VIAL IV SCH ×2 (08:24→13:57)
[2022-06-04] MEDS: BUDESONIDE 0.5 MG/2 ML AMPUL.NEB NEB SCH (11:06)
[2022-06-04] MEDS: IPRATROPIUM/ALBUTEROL 3 ML AMPUL.NEB NEB PRN (14:05)
== END 2022-06-04 14:45 | disposition home health service (06) | DRG 177 ==
LOC: ICU 22:37 → ED 22:37 → ICU 06-01 07:30
PROVIDERS: ADMIT Internal Medicine; ATTEND Internal Medicine